=== PATIENT | male | born 1965 | race African-American/Black ===

== ENCOUNTER 2024-10-02 14:11 | Emergency (ER) | payer MEDICAID ==
[~2024-10-02] VITALS: Ht 185.4 cm; Wt 100.0 kg
[2024-10-02 14:13] VITALS: BP 118/73; PULSE 92; RESP 18; TEMP 36.9; O2SAT 98
[2024-10-02] MEDS ORDERED: ACETAMINOPHEN 500MG TABLET PO ONE (15:00)
== END 2024-10-02 16:37 | disposition left against medical advice (07) ==
LOC: ER 14:11
DX: M54.50 Low back pain, unspecified (principal); F20.9 Schizophrenia, unspecified; W19.XXXA Unspecified fall, initial encounter; Y93.89 Activity, other specified; Y92.89 Other specified places as the place of occurrence of the external cause; Y99.8 Other external cause status
CPT/HCPCS: 99283